=== PATIENT | female | born 1980 | race Hispanic/Latino ===

== ENCOUNTER 2020-06-28 16:30 | Emergency (ER) | payer OTHER ==
[~2020-06-28] VITALS: Ht 160 cm; Wt 104.3 kg
[2020-06-28] MEDS ORDERED: FAMOTIDINE 20 MG/2 ML VIAL IV ONE (16:45)
[2020-06-28] MEDS ORDERED: ACETAMINOPHEN 325 MG TAB PO ONE (16:45)
[2020-06-28] MEDS ORDERED: KETOROLAC TROMETHAMINE 30 MG/ML VIAL IV ONE (16:45)
[2020-06-28] MEDS ORDERED: TYLENOL # 31 EA PO (17:02)
[2020-06-28] MEDS ORDERED: ZOFRAN4 MG PO (17:02)
[2020-06-28] MEDS ORDERED: CEFDINIR300 MG PO (17:46)
[2020-06-28 18:01] VITALS: BP 125/71
== END 2020-06-28 18:03 | disposition home or self-care (01) ==
LOC: FSED 16:47
DX: U07.1 COVID-19 (principal); R07.89 Other chest pain; R05 Cough; R06.02 Shortness of breath; E11.65 Type 2 diabetes mellitus with hyperglycemia
CPT/HCPCS: 71046; 82553; 84484; 93005; 96374; 96376; 99284; J1885